=== PATIENT | female | born 1950 | race Hispanic/Latino ===

== ENCOUNTER 2017-05-14 06:40 | Emergency (ER) | payer MEDICARE ==
[~2017-05-14] VITALS: Ht 157.5 cm; Wt 92.5 kg
[~2017-05-14 06:40] MED LIST: ADVAIR 250-501 EACH INH; CEFUROXIME500 MG PO; CIPROFLOXACIN750 MG PO; ENALAPRIL MALE2.5 MG PO; GLIMEPIRIDE4 MG PO; LEVOTHYROXINE25 MCG PO; LEVOTHYROXINE50 MCG PO; LOVASTATIN40 MG PO; METFORMIN HCL850 MG PO; Q-TUSSIN DM SY120 ML PO
--- OUTSIDE RECORDS SUMMARY | 2017-05-14 06:43 | XMS REPORT ---
Author Author [facility] Address Unknown Phone Unavailable Care Team Providers Care Instrument Lens Grinder Name Role Phone FRANKY PETERSEN Unavailable Unavailable Problems This patient has no known problems. Allergies, Adverse Reactions, Alerts This patient has no known allergies or adverse reactions. Medications This patient has no known medications. Results Test Description Test Time Test Comments Text Results Atomic Results Result Comments CT ABDOMEN/PELVIS W [place] [address] Patient Name: JOANIE MARIEE MR #: [id number] : 1950 Age/Sex: 66/F Req #: [id number] [facility] Physician: FRANKY PETERSEN MD Ordered by: BERNIE HAGEN MD Report #: [id number] Location: [facility] Room/Bed: [place] [address] Procedure: [id number] CT/CT ABDOMEN/PELVIS W Exam Date: Exam Time: REPORT STATUS: Signed EXAM: CT ABDOMEN/PELVIS W DATE: 01/05/2017 6:01 PM INDICATION: Left lower quadrant pain COMPARISON: None TECHNIQUE: The abdomen and pelvis were scanned using a multidetector helical scanner. Coronal and sagittal reformations were obtained. Routine protocol performed. IV Contrast: 100 ml Isovue 370 FINDINGS: LOWER THORAX: Mild lingular opacity, likely atelectasis. LIVER/BILIARY: No masses. Mild biliary ductal dilation status post cholecystectomy. GALLBLADDER: Surgically absent SPLEEN: Unremarkable PANCREAS: Unremarkable ADRENALS: No nodules KIDNEYS: Symmetric perfusion. Multiple too small to characterize bilateral renal hypodensities. No hydronephrosis. GI TRACT: Mild thickening of several jejunal loops for example on image 37, 42 but without surrounding inflammatory changes. No evidence of bowel obstruction. Appendix is not visualized. VESSELS: Minimal atherosclerotic changes PERITONEUM/ RETROPERITONEUM: No free air or fluid LYMPH NODES: No lymphadenopathy REPRODUCTIVE ORGANS/BLADDER: Status post hysterectomy. SOFT TISSUES: Rectus muscle diastases. BONES: Scattered degenerative changes are seen about the spine.. IMPRESSION: Question mild jejunitis. Otherwise negative for acute abnormality. Signed by: Dr Chika Obregon MD on 01/05/2017 7:24 PM Dictated By: CHIKA OBREGON MD 23 Transcribed By: EVERETTE on 01/05/171923 COPY TO: BERNIE HAGEN MD
--- NOTE | 2017-05-14 07:46 | Diagnostic Imaging Report ---
PROCEDURE: A single AP view of the chest. COMPARISON: Chest 2 views 05/16/2016. INDICATIONS: COUGH, FEVER FINDINGS: Lines/tubes: None. Lungs: The lungs are well inflated and clear. There is no evidence of pneumonia or pulmonary edema. Pleura: There is no pleural effusion or pneumothorax. Heart and mediastinum: The heart and the mediastinum are unremarkable. Bones: No acute bony abnormality. IMPRESSION: No acute radiographic abnormality. Dictated by: Brandon Blanton M.D. on 05/14/2017 at 7:45 Electronically approved by: Brandon Blanton M.D. on 05/14/2017 at 7:45
[2017-05-14 07:48] LABS: BASOPHILS # (AUTO) 0.1 (0.0-0.1); BASOPHILS % 0.7 % (0.0-1.0); EOSINOPHILS # (AUTO) 0.4 (0.0-0.4); EOSINOPHILS % 6.3 % (0.0-6.0); HEMOGLOBIN 10.2 g/dL (12.0-16.0); LYMPHOCYTES # (AUTO) 1.5 (1.0-3.2); LYMPHOCYTES % 21.3 % (18.0-39.1); MEAN CORPUSCULAR HEMOGLOBIN 28.3 pg (28-32); MEAN CORPUSCULAR HGB CONC 30.9 g/dL (31-35); MEAN CORPUSCULAR VOLUME 91.7 fL (81-99); MONOCYTES # (AUTO) 0.4 (0.2-0.8); MONOCYTES % 5.1 % (4.4-11.3); NEUTROPHILS # (AUTO) 4.5 (2.1-6.9); NEUTROPHILS % 66.3 % (38.7-80.0); PLATELET COUNT 265 x10e3/uL (140-360); RED CELL DISTRIBUTION WIDTH 15.7 % (11.7-14.4)
[2017-05-14 08:06] LABS: ALANINE AMINOTRANSFERASE 16 IU/L (0-55); ALBUMIN 3.6 g/dL (3.5-5.0); ALBUMIN/GLOBULIN RATIO 0.9 (0.8-2.0); ALKALINE PHOSPHATASE 114 IU/L (40-150); ANION GAP 11.5 mmol/L (8-16); BLOOD UREA NITROGEN 11 mg/dL (7-26); BUN/CREATININE RATIO 16 (6-25); CALCIUM 8.5 mg/dL (8.4-10.2); CARBON DIOXIDE 27 mmol/L (22-29); CHLORIDE 104 mmol/L (98-107); EST GLOMERULAR FILTRATION RATE > 60 ML/MIN (60-); GLUCOSE 110 mg/dL (74-118); POTASSIUM 3.5 mmol/L (3.5-5.1); SODIUM 139 mmol/L (136-145)
== END 2017-05-14 09:00 | disposition home or self-care (01) ==
LOC: ER 06:40
DX: J00 Acute nasopharyngitis [common cold] (principal); R19.7 Diarrhea, unspecified; E11.9 Type 2 diabetes mellitus without complications; I10 Essential (primary) hypertension
CPT/HCPCS: 36415; 71045; 80053; 85025; 87040; 87400; 93005; 99284

== ENCOUNTER 2018-03-03 06:21 | Emergency (ER) | payer MEDICARE ==
[~2018-03-03] VITALS: Ht 157.5 cm; Wt 92.5 kg
[2018-03-03] MEDS ORDERED: ALBUTEROL/IPRATROPIUM 3 ML NEB NEB ONE ×2 (06:45→07:15)
[2018-03-03 07:08] LABS: BASOPHILS # (AUTO) 0.1 (0.0-0.1); BASOPHILS % 0.7 % (0.0-1.0); EOSINOPHILS # (AUTO) 0.6 (0.0-0.4); HEMATOCRIT 33.2 % (34.2-44.1); HEMOGLOBIN 10.1 g/dL (12.0-16.0); LYMPHOCYTES # (AUTO) 1.8 (1.0-3.2); LYMPHOCYTES % 26.5 % (18.0-39.1); MEAN CORPUSCULAR HEMOGLOBIN 29.4 pg (28-32); MEAN CORPUSCULAR HGB CONC 30.4 g/dL (31-35); MEAN CORPUSCULAR VOLUME 96.8 fL (81-99); MONOCYTES # (AUTO) 0.4 (0.2-0.8); MONOCYTES % 6.3 % (4.4-11.3); NEUTROPHILS % 58.1 % (38.7-80.0); PLATELET COUNT 258 x10e3/uL (140-360); RED BLOOD COUNT 3.43 x10e6/uL (3.6-5.1); RED CELL DISTRIBUTION WIDTH 18.6 % (11.7-14.4)
[2018-03-03] MEDS ORDERED: DEXAMETHASONE SOD PHOS 10 MG/1 ML VIAL IV ONE (07:15)
[2018-03-03 07:20] LABS: INR 0.87; PARTIAL THROMBOPLASTIN TIME 26.9 seconds (23.8-35.5); PROTHROMBIN TIME 12.7 seconds (11.9-14.5)
[2018-03-03 07:25] LABS: ALANINE AMINOTRANSFERASE 35 IU/L (0-55); ALBUMIN 3.7 g/dL (3.5-5.0); ALBUMIN/GLOBULIN RATIO 0.8 (0.8-2.0); ALKALINE PHOSPHATASE 222 IU/L (40-150); ANION GAP 17.1 mmol/L (8-16); BLOOD UREA NITROGEN 11 mg/dL (7-26); BUN/CREATININE RATIO 14 (6-25); CALCIUM 9.5 mg/dL (8.4-10.2); CARBON DIOXIDE 24 mmol/L (22-29); CHLORIDE 101 mmol/L (98-107); CREATINE KINASE 85 IU/L (29-168); CREATININE, SERUM 0.79 mg/dL (0.57-1.11); EST GLOMERULAR FILTRATION RATE > 60 ML/MIN (60-); GLUCOSE 144 mg/dL (74-118); POTASSIUM 4.1 mmol/L (3.5-5.1); SODIUM 138 mmol/L (136-145)
[2018-03-03] MEDS ORDERED: KETOROLAC TROMETHAMINE 30 MG/ML VIAL IV STA (08:01)
[2018-03-03] MEDS ORDERED: SODIUM CHLORIDE 0.9% 1000ML 1,000 ML IV ONE (08:15)
--- NOTE | 2018-03-03 08:28 | Diagnostic Imaging Report ---
PROCEDURE: X-RAY CHEST, TWO VIEWS COMPARISON: Patients [facility], DX, CHEST SINGLE (PORTABLE), 05/14/2017, 7:34. INDICATIONS: COUGH, CONGESTION, SHORTNESS OF BREATH, CHEST PAINS X3 DAYS FINDINGS: LUNGS: No consolidations or edema. Linear scarring in the left lung base. PLEURA: No effusions or pneumothorax. HEART & MEDIASTINUM: The heart is within normal size-limits. Focal eventration of the right hemidiaphragm. BONES & SOFT TISSUES: No acute findings. CONCLUSION: No acute thoracic abnormality. Jd Yanes D.O. Dictated by: Jd Yanes D.O. on 03/03/2018 at 8:38 Electronically approved by: Jd Yanes D.O. on 03/03/2018 at 8:38
[2018-03-03] MEDS ORDERED: VENTOLIN HFA18 GM INH (09:11)
[2018-03-03] MEDS ORDERED: AZITHROMYCIN250 MG PO (09:11)
[2018-03-03] MEDS ORDERED: MUCINEX COLD-F177 ML PO (09:11)
[2018-03-03] MEDS ORDERED: PREDNISONE20 MG PO (09:11)
[2018-03-03] MEDS ORDERED: ATROVENT HFA12.9 GM INH (09:11)
[2018-03-03 09:29] VITALS: BP 130/62
== END 2018-03-03 09:33 | disposition home or self-care (01) ==
LOC: ER 06:21
DX: R06.00 Dyspnea, unspecified (principal); J45.31 Mild persistent asthma with (acute) exacerbation; J42 Unspecified chronic bronchitis
CPT/HCPCS: 36415; 71046; 80053; 82550; 82553; 82948; 83880; 84484; 85025; 85610; 85730; 87400; 93005; 99284; J1100; J1885; J7030

== ENCOUNTER 2018-11-29 19:37 | Emergency (ER) | payer MEDICARE ==
[~2018-11-29] VITALS: Ht 157.5 cm; Wt 92.5 kg
[~2018-11-29 19:37] MED LIST changes: +ATROVENT HFA12.9 GM INH; +AZITHROMYCIN250 MG PO; +MUCINEX COLD-F177 ML PO; +PREDNISONE20 MG PO; +VENTOLIN HFA18 GM INH
[2018-11-29] MEDS ORDERED: ALBUTEROL SULF 0.083% NEB SOLN 3 ML NEB NEB NR (20:00)
[2018-11-29] MEDS ORDERED: METHYLPREDNISOLONE SOD SUCC 125 MG/2ML VIAL IV NR (20:00)
[2018-11-29] MEDS ORDERED: IPRATROPIUM BROMIDE 0.02% 2.5 ML NEB NEB NR (20:00)
[2018-11-29] MEDS ORDERED: ALBUTEROL/IPRATROPIUM 3 ML NEB ONE (20:03)
[2018-11-29 20:29] LABS: BASOPHILS % 0.6 % (0.0-1.0); EOSINOPHILS # (AUTO) 0.5 (0.0-0.4); EOSINOPHILS % 6.7 % (0.0-6.0); HEMATOCRIT 32.4 % (34.2-44.1); HEMOGLOBIN 10.7 g/dL (12.0-16.0); LYMPHOCYTES # (AUTO) 2.4 (1.0-3.2); LYMPHOCYTES % 34.5 % (18.0-39.1); MEAN CORPUSCULAR VOLUME 112.1 fL (81-99); MONOCYTES # (AUTO) 0.3 (0.2-0.8); NEUTROPHILS # (AUTO) 3.6 (2.1-6.9); NEUTROPHILS % 52.9 % (38.7-80.0); PLATELET COUNT 224 x10e3/uL (140-360); RED BLOOD COUNT 2.89 x10e6/uL (3.6-5.1); RED CELL DISTRIBUTION WIDTH 16.7 % (11.7-14.4)
[2018-11-29 20:44] LABS: ALANINE AMINOTRANSFERASE 13 IU/L (0-55); ALBUMIN 3.8 g/dL (3.5-5.0); ALKALINE PHOSPHATASE 142 IU/L (40-150); ANION GAP 15.2 mmol/L (8-16); BLOOD UREA NITROGEN 16 mg/dL (7-26); BUN/CREATININE RATIO 21 (6-25); CALCIUM 9.8 mg/dL (8.4-10.2); CARBON DIOXIDE 27 mmol/L (22-29); CHLORIDE 102 mmol/L (98-107); CREATINE KINASE 56 IU/L (29-168); CREATININE, SERUM 0.78 mg/dL (0.57-1.11); EST GLOMERULAR FILTRATION RATE > 60 ML/MIN (60-); GLUCOSE 71 mg/dL (74-118); POTASSIUM 4.2 mmol/L (3.5-5.1); SODIUM 140 mmol/L (136-145)
[2018-11-29 21:15] LABS: B-TYPE NATRIURETIC PEPTIDE2 23.1 pg/mL (0-100)
--- NOTE | 2018-11-29 21:24 | Diagnostic Imaging Report ---
Portable chest x-ray INDICATION: Cough COMPARISON: Chest x-ray 03/03/2018 FINDINGS: Frontal view of the chest obtained at 2031 hours. The cardiac silhouette is normal. The pulmonary vascular markings are normal. The lungs demonstrate no mass or infiltrate. No interstitial edema. The costophrenic angles are sharp. There is no pneumothorax. Eventration of the right diaphragm is stable. The osseous structures are intact and normal in morphology. IMPRESSION: No acute cardiopulmonary process. Signed by: Dr. Tho Mackenzie MD on 11/29/2018 9:20 PM
[2018-11-29 22:23] VITALS: BP 124/61
== END 2018-11-29 22:37 | disposition home or self-care (01) ==
LOC: FSED 19:37 → ER 22:37
DX: R05 Cough (principal); J20.9 Acute bronchitis, unspecified
CPT/HCPCS: 36415; 71045; 80053; 82550; 82553; 83605; 83880; 84484; 85025; 94640; 96374; 99284; J2930

== ENCOUNTER 2020-01-19 13:31 | Emergency (ER) | payer MEDICARE ==
[~2020-01-19] VITALS: Ht 157.5 cm; Wt 92.5 kg
[~2020-01-19 13:31] MED LIST changes: +TYLENOL WITH C1 EACH PO
[2020-01-19] MEDS ORDERED: KETOROLAC TROMETHAMINE 60 MG/2 ML VIAL IM ONE (16:00)
[2020-01-19] MEDS ORDERED: CYCLOBENZAPRINE HCL 10 MG TAB PO ONE (16:00)
[2020-01-19] MEDS ORDERED: CYCLOBENZAPRINE HCL 10 MG TAB ONE (16:27)
[2020-01-19] MEDS ORDERED: KETOROLAC TROMETHAMINE 60 MG/2 ML VIAL ONE (16:27)
[2020-01-19] MEDS ORDERED: MELOXICAM15 MG PO (16:59)
[2020-01-19] MEDS ORDERED: PREDNISONE20 MG PO (16:59)
== END 2020-01-19 17:04 | disposition home or self-care (01) ==
LOC: FSED 13:52
DX: M25.562 Pain in left knee (principal); M17.12 Unilateral primary osteoarthritis, left knee; M76.9 Unspecified enthesopathy, lower limb, excluding foot; I10 Essential (primary) hypertension; E11.9 Type 2 diabetes mellitus without complications; J45.909 Unspecified asthma, uncomplicated
CPT/HCPCS: 73562; 93971 ×2; 99283; J1885

== ENCOUNTER 2020-03-05 05:10 | Emergency (ER) | payer MEDICARE ==
[~2020-03-05] VITALS: Ht 157.5 cm; Wt 92.5 kg
[~2020-03-05 05:10] MED LIST changes: +MELOXICAM15 MG PO
[2020-03-05] MEDS ORDERED: KETOROLAC TROMETHAMINE 30 MG/ML VIAL IM STA (05:33)
[2020-03-05] MEDS ORDERED: HYDROCODONE/APAP 7.5MG-325MG 1 EA TAB PO PRN (05:45)
== END 2020-03-05 06:05 | disposition home or self-care (01) ==
LOC: ER 05:22
DX: M17.12 Unilateral primary osteoarthritis, left knee (principal); M25.562 Pain in left knee; I10 Essential (primary) hypertension; E11.9 Type 2 diabetes mellitus without complications
CPT/HCPCS: 99283; J1885

== ENCOUNTER 2020-06-28 12:18 | Emergency (ER) | payer MEDICARE ==
[~2020-06-28] VITALS: Ht 157.5 cm; Wt 92.5 kg
[2020-06-28] MEDS ORDERED: SODIUM CHLORIDE 0.9% 1000ML 1,000 ML IV STA (12:23)
[2020-06-28] MEDS ORDERED: ONDANSETRON HCL INJ 2MG/ML 2ML 2 MG/ML VIAL IV PRN (12:30)
[2020-06-28 13:17] LABS: BASOPHILS % 0.3 % (0.0-1.0); EOSINOPHILS % 0.1 % (0.0-6.0); HEMATOCRIT 39.2 % (34.2-44.1); HEMOGLOBIN 11.7 g/dL (12.0-16.0); LYMPHOCYTES # (AUTO) 1.4 (1.0-3.2); LYMPHOCYTES % 11.9 % (18.0-39.1); MEAN CORPUSCULAR HEMOGLOBIN 22.7 pg (28-32); MEAN CORPUSCULAR HGB CONC 29.8 g/dL (31-35); MEAN CORPUSCULAR VOLUME 76.1 fL (81-99); MONOCYTES % 8.3 % (4.4-11.3); NEUTROPHILS # (AUTO) 8.9 (2.1-6.9); NEUTROPHILS % 78.3 % (38.7-80.0); PLATELET COUNT 370 x10e3/uL (140-360); RED BLOOD COUNT 5.15 x10e6/uL (3.6-5.1); RED CELL DISTRIBUTION WIDTH 17.2 % (11.7-14.4)
[2020-06-28 13:37] LABS: ALBUMIN 2.9 g/dL (3.5-5.0); ALBUMIN/GLOBULIN RATIO 0.7 (0.8-2.0); ANION GAP 17.6 mmol/L (8-16); CREATININE, SERUM 1.07 mg/dL (0.57-1.11); POTASSIUM 3.6 mmol/L (3.5-5.1)
[2020-06-28 14:30] LABS: CLARITY,URINE SL CLOUDY (CLEAR); COLOR,URINE YELLOW (YELLOW)
[2020-06-28 14:31] LABS: KETONES,URINE 2+ (NEGATIVE); LEUKOCYTE ESTERASE ,URINE 1+ (NEGATIVE); NITRITE,URINE NEGATIVE (NEGATIVE); PROTEIN,URINE DIPSTICK 2+ (NEGATIVE); URINE UROBILINOGEN 0.2 mg/dL (0.2 - 1)
[2020-06-28 14:35] LABS: BACTERIA,URINE FEW /HPF; EPITHELIAL CELLS,URINE MODERATE /LPF; RBC,URINE 0-5 /HPF (0-5)
[2020-06-28] MEDS ORDERED: MECLIZINE HCL 12.5 MG TAB PO STA (14:42)
[2020-06-28] MEDS ORDERED: PROMETHAZINE 12.5MG/ NACL 0.9% 12.5 MG/50 ML BAG IV PRN (15:15)
[2020-06-28] MEDS ORDERED: ONDANSETRON HCL INJ 2MG/ML 2ML 2 MG/ML VIAL IV STA (15:21)
[2020-06-28] MEDS ORDERED: SODIUM CHLORIDE 0.9% 1000ML 1,000 ML IV ONE (15:30)
[2020-06-28] MEDS ORDERED: SODIUM CHLORIDE 0.9% 1000ML 1,000 ML IV SCH (15:45)
[2020-06-28] MEDS ORDERED: ADVAIR 250-501 EACH INH (17:50)
[2020-06-28] MEDS ORDERED: GABAPENTIN600 MG PO (17:52)
[2020-06-28] MEDS ORDERED: IBUPROFEN400 MG PO (17:53)
[2020-06-29 07:03] LABS: BASOPHILS % 0.4 % (0.0-1.0); EOSINOPHILS # (AUTO) 0.1 (0.0-0.4); HEMATOCRIT 35.1 % (34.2-44.1); HEMOGLOBIN 10.4 g/dL (12.0-16.0); LYMPHOCYTES # (AUTO) 1.8 (1.0-3.2); LYMPHOCYTES % 25.8 % (18.0-39.1); MEAN CORPUSCULAR HEMOGLOBIN 22.6 pg (28-32); MEAN CORPUSCULAR HGB CONC 29.6 g/dL (31-35); MEAN CORPUSCULAR VOLUME 76.1 fL (81-99); MONOCYTES # (AUTO) 0.7 (0.2-0.8); MONOCYTES % 9.4 % (4.4-11.3); NEUTROPHILS # (AUTO) 4.4 (2.1-6.9); NEUTROPHILS % 62.4 % (38.7-80.0); RED BLOOD COUNT 4.61 x10e6/uL (3.6-5.1); RED CELL DISTRIBUTION WIDTH 17.3 % (11.7-14.4)
[2020-06-29 07:30] LABS: ANION GAP 13.1 mmol/L (8-16); BLOOD UREA NITROGEN 13 mg/dL (7-26); BUN/CREATININE RATIO 20 (6-25); CALCIUM 7.4 mg/dL (8.4-10.2); CARBON DIOXIDE 22 mmol/L (22-29); CHLORIDE 107 mmol/L (98-107); CREATININE, SERUM 0.65 mg/dL (0.57-1.11); EST GLOMERULAR FILTRATION RATE > 60 ML/MIN (60-); GLUCOSE 185 mg/dL (74-118); POTASSIUM 3.1 mmol/L (3.5-5.1); SODIUM 139 mmol/L (136-145)
[2020-06-29 08:28] LABS: PLATELET COUNT 234 x10e3/uL (140-360)
[2020-06-29] MEDS ORDERED: PREDNISONE20 MG PO (14:22)
[2020-06-29] MEDS ORDERED: POTASSIUM CHLORIDE 20 MEQ TAB CR PO STA (14:25)
[2020-06-29] MEDS ORDERED: ZOFRAN4 MG PO (14:27)
== END 2020-06-29 15:14 | disposition home or self-care (01) ==
LOC: ER 12:23 → ERHOLD 15:40 → UNDOADMOB 15:40
DX: U07.1 COVID-19 (principal); E11.65 Type 2 diabetes mellitus with hyperglycemia; R11.2 Nausea with vomiting, unspecified; R53.1 Weakness; I10 Essential (primary) hypertension; J45.909 Unspecified asthma, uncomplicated; M25.562 Pain in left knee; G89.29 Other chronic pain
CPT/HCPCS: 36415; 70450; 71046; 80048; 80053; 81001; 83690; 85025; 99284; J2405; J7030; J8597; U0002

== ENCOUNTER 2021-03-21 05:53 | Emergency (ER) | payer MEDICARE ==
[~2021-03-21] VITALS: Ht 157.5 cm; Wt 92.5 kg
[~2021-03-21 05:53] MED LIST changes: +GABAPENTIN600 MG PO; +IBUPROFEN400 MG PO; +ZOFRAN4 MG PO
[2021-03-21] MEDS ORDERED: SODIUM CHLORIDE 0.9% 1000ML 1,000 ML IV SCH (06:15)
[2021-03-21] MEDS ORDERED: ACETAMINOPHEN 325 MG TAB PO NR (06:15)
[2021-03-21 06:19] LABS: BASOPHILS % 0.1 % (0.0-1.0); EOSINOPHILS # (AUTO) 0.3 (0.0-0.4); EOSINOPHILS % 2.6 % (0.0-6.0); HEMOGLOBIN 10.6 g/dL (12.0-16.0); LYMPHOCYTES % 8.1 % (18.0-39.1); MEAN CORPUSCULAR HEMOGLOBIN 24.3 pg (28-32); MEAN CORPUSCULAR HGB CONC 28.6 g/dL (31-35); MEAN CORPUSCULAR VOLUME 84.7 fL (81-99); MONOCYTES # (AUTO) 0.4 (0.2-0.8); MONOCYTES % 3.2 % (4.4-11.3); NEUTROPHILS # (AUTO) 10.4 (2.1-6.9); NEUTROPHILS % 85.7 % (38.7-80.0); PLATELET COUNT 251 x10e3/uL (140-360); RED BLOOD COUNT 4.37 x10e6/uL (3.6-5.1); RED CELL DISTRIBUTION WIDTH 20.6 % (11.7-14.4)
[2021-03-21] MEDS ORDERED: ONDANSETRON HCL INJ 2MG/ML 2ML 2 MG/ML VIAL IV STA (06:29)
[2021-03-21 06:35] LABS: ALBUMIN 3.4 g/dL (3.5-5.0); ALBUMIN/GLOBULIN RATIO 0.8 (0.8-2.0); ANION GAP 15.4 mmol/L (8-16); CALCIUM 8.5 mg/dL (8.4-10.2); CREATININE, SERUM 0.77 mg/dL (0.57-1.11); POTASSIUM 3.4 mmol/L (3.5-5.1)
[2021-03-21] MEDS ORDERED: KETOROLAC TROMETHAMINE 30 MG/ML VIAL IV NR (06:48)
[2021-03-21 07:10] LABS: CREATINE KINASE 30 IU/L (29-168)
== END 2021-03-21 07:55 | disposition home or self-care (01) ==
LOC: ER 06:08
DX: U07.1 COVID-19 (principal); I10 Essential (primary) hypertension; E11.9 Type 2 diabetes mellitus without complications; J45.909 Unspecified asthma, uncomplicated; Z79.84 Long term (current) use of oral hypoglycemic drugs; Z79.899 Other long term (current) drug therapy
CPT/HCPCS: 36415; 71045; 80053; 82550; 82553; 84484; 85025; 99284; J2405; J7030; U0002

== ENCOUNTER 2021-04-21 15:44 | Inpatient (IN) | payer MEDICARE ==
[~2021-04-21] VITALS: Ht 157.5 cm; Wt 92.5 kg
[2021-04-21] MEDS ORDERED: SODIUM CHLORIDE 0.9% 1000ML 500 ML IV STA (15:56)
[2021-04-21 16:08] LABS: BASOPHILS # (AUTO) 0.1 (0.0-0.1); BASOPHILS % 0.4 % (0.0-1.0); EOSINOPHILS # (AUTO) 0.2 (0.0-0.4); EOSINOPHILS % 1.7 % (0.0-6.0); HEMATOCRIT 33.3 % (34.2-44.1); HEMOGLOBIN 9.7 g/dL (12.0-16.0); LYMPHOCYTES # (AUTO) 1.5 (1.0-3.2); LYMPHOCYTES % 13.3 % (18.0-39.1); MEAN CORPUSCULAR HEMOGLOBIN 25.5 pg (28-32); MEAN CORPUSCULAR HGB CONC 29.1 g/dL (31-35); MEAN CORPUSCULAR VOLUME 87.4 fL (81-99); MONOCYTES # (AUTO) 0.5 (0.2-0.8); NEUTROPHILS # (AUTO) 9.2 (2.1-6.9); NEUTROPHILS % 80.2 % (38.7-80.0); PLATELET COUNT 285 x10e3/uL (140-360); RED BLOOD COUNT 3.81 x10e6/uL (3.6-5.1); RED CELL DISTRIBUTION WIDTH 19.9 % (11.7-14.4)
[2021-04-21 16:20] LABS: INR 1.01
[2021-04-21 16:21] LABS: PARTIAL THROMBOPLASTIN TIME 28.3 seconds (23.8-35.5)
[2021-04-21 16:22] LABS: CLARITY,URINE CLEAR (CLEAR); COLOR,URINE YELLOW (YELLOW); KETONES,URINE NEGATIVE (NEGATIVE); LEUKOCYTE ESTERASE ,URINE NEGATIVE (NEGATIVE); NITRITE,URINE NEGATIVE (NEGATIVE); PROTEIN,URINE DIPSTICK NEGATIVE (NEGATIVE); URINE UROBILINOGEN 0.2 mg/dL (0.2 - 1)
[2021-04-21 16:24] LABS: ALBUMIN/GLOBULIN RATIO 0.6 (0.8-2.0); ANION GAP 15.1 mmol/L (8-16); CALCIUM 8.7 mg/dL (8.4-10.2); CREATININE, SERUM 0.98 mg/dL (0.57-1.11); POTASSIUM 4.1 mmol/L (3.5-5.1)
[2021-04-21 16:30] LABS: EPITHELIAL CELLS,URINE RARE /LPF; WBC,URINE (MAN) 0-5 /HPF (0-5)
[2021-04-21 16:30] LABS: CREATINE KINASE MB 0.5 ng/mL (0-5.0)
[2021-04-21] MEDS ORDERED: INSULIN REGULAR, HUMAN 100 UNIT/1 ML SQ ONE (16:30)
[2021-04-21] MEDS: CEFTRIAXONE 1 GM in SODIUM CHLORIDE 0.9% 50ML 50 ML IV SCH (16:44)
[2021-04-21] MEDS ORDERED: CEFTRIAXONE 1 GM in SODIUM CHLORIDE 0.9% 50ML 50 ML IV SCH (16:45)
[2021-04-21] MEDS ORDERED: FLUCONAZOLE 100 MG TAB PO ONE (18:00)
[2021-04-21] MEDS ORDERED: SODIUM CHLORIDE 0.9% 50ML 50 ML ONE (18:16)
[2021-04-21] MEDS ORDERED: IOPAMIDOL 370 MG/ML 200 ML INFUS..BTL INJ ONE (18:16)
[2021-04-21] MEDS: SODIUM CHLORIDE 0.9% 1000ML 1,000 ML IV SCH (18:49)
[2021-04-21] MEDS ORDERED: DEXTROSE 50% SYRINGE 50 ML IV PRN (19:00)
[2021-04-21 20:15] VITALS: BP 118/68
[2021-04-21 20:44] VITALS: BP 118/68
[2021-04-21] MEDS: INSULIN REGULAR, HUMAN 100 UNIT/1 ML SQ SCH (20:59)
[2021-04-21 21:00] VITALS: BP 118/68
[2021-04-21 21:01] VITALS: BP 118/68
[2021-04-22] VITALS (11 sets, daily range): BP systolic 110–130; BP diastolic 47–59
[2021-04-22] MEDS: SODIUM CHLORIDE 0.9% 1000ML 1,000 ML IV SCH ×4 (02:08→20:47)
[2021-04-22] MEDS ORDERED: ALTOPREV40 MG PO (03:15)
[2021-04-22 06:06] LABS: BASOPHILS # (AUTO) 0.1 (0.0-0.1); BASOPHILS % 0.6 % (0.0-1.0); EOSINOPHILS # (AUTO) 0.3 (0.0-0.4); EOSINOPHILS % 3.6 % (0.0-6.0); HEMOGLOBIN 9.3 g/dL (12.0-16.0); LYMPHOCYTES # (AUTO) 1.9 (1.0-3.2); LYMPHOCYTES % 21.5 % (18.0-39.1); MEAN CORPUSCULAR HEMOGLOBIN 25.5 pg (28-32); MEAN CORPUSCULAR VOLUME 85.2 fL (81-99); MONOCYTES # (AUTO) 0.4 (0.2-0.8); MONOCYTES % 4.8 % (4.4-11.3); PLATELET COUNT 271 x10e3/uL (140-360); RED BLOOD COUNT 3.64 x10e6/uL (3.6-5.1); RED CELL DISTRIBUTION WIDTH 20.1 % (11.7-14.4)
[2021-04-22 06:33] LABS: ALBUMIN 2.6 g/dL (3.5-5.0); ALBUMIN/GLOBULIN RATIO 0.6 (0.8-2.0); CALCIUM 8.4 mg/dL (8.4-10.2); CREATININE, SERUM 0.71 mg/dL (0.57-1.11)
[2021-04-22] MEDS: INSULIN REGULAR, HUMAN 100 UNIT/1 ML SQ SCH ×4 (08:06→20:46)
[2021-04-22] MEDS ORDERED: LEVOTHYROXINE SODIUM 50 MCG TAB PO SCH (09:00)
[2021-04-22] MEDS: METFORMIN HCL 850 MG TAB PO SCH ×3 (09:13→16:40)
[2021-04-22] MEDS: FLUCONAZOLE 100 MG TAB PO SCH (09:13)
[2021-04-22] MEDS: CEFTRIAXONE 1 GM in SODIUM CHLORIDE 0.9% 50ML 50 ML IV SCH (16:40)
[2021-04-23] VITALS (14 sets, daily range): BP systolic 116–140; BP diastolic 50–70
[2021-04-23] MEDS: SODIUM CHLORIDE 0.9% 1000ML 1,000 ML IV SCH ×3 (03:27→23:24)
[2021-04-23] MEDS: IBUPROFEN 400 MG TAB PO PRN ×3 (04:04→23:25)
[2021-04-23] MEDS: LEVOTHYROXINE SODIUM 50 MCG TAB PO SCH (05:10)
[2021-04-23] MEDS: FLUCONAZOLE 100 MG TAB PO SCH (08:28)
[2021-04-23] MEDS: METFORMIN HCL 850 MG TAB PO SCH ×3 (08:28→16:12)
[2021-04-23] MEDS: INSULIN REGULAR, HUMAN 100 UNIT/1 ML SQ SCH ×4 (08:29→20:29)
[2021-04-23] MEDS: CEFTRIAXONE 1 GM in SODIUM CHLORIDE 0.9% 50ML 50 ML IV SCH (16:12)
[2021-04-24] VITALS (8 sets, daily range): BP systolic 132–155; BP diastolic 55–72
[2021-04-24] MEDS: LEVOTHYROXINE SODIUM 50 MCG TAB PO SCH (05:16)
[2021-04-24 06:16] LABS: BASOPHILS # (AUTO) 0.1 (0.0-0.1); BASOPHILS % 0.7 % (0.0-1.0); EOSINOPHILS # (AUTO) 0.3 (0.0-0.4); EOSINOPHILS % 3.6 % (0.0-6.0); HEMATOCRIT 31.3 % (34.2-44.1); LYMPHOCYTES # (AUTO) 1.5 (1.0-3.2); LYMPHOCYTES % 16.1 % (18.0-39.1); MEAN CORPUSCULAR HEMOGLOBIN 25.4 pg (28-32); MEAN CORPUSCULAR HGB CONC 28.8 g/dL (31-35); MEAN CORPUSCULAR VOLUME 88.2 fL (81-99); MONOCYTES # (AUTO) 0.4 (0.2-0.8); MONOCYTES % 4.6 % (4.4-11.3); NEUTROPHILS # (AUTO) 6.9 (2.1-6.9); NEUTROPHILS % 74.6 % (38.7-80.0); PLATELET COUNT 285 x10e3/uL (140-360); RED BLOOD COUNT 3.55 x10e6/uL (3.6-5.1); RED CELL DISTRIBUTION WIDTH 20.8 % (11.7-14.4)
[2021-04-24 06:37] LABS: ALBUMIN 2.5 g/dL (3.5-5.0); ALBUMIN/GLOBULIN RATIO 0.6 (0.8-2.0); ANION GAP 12.9 mmol/L (8-16); CALCIUM 8.3 mg/dL (8.4-10.2); CREATININE, SERUM 0.66 mg/dL (0.57-1.11); POTASSIUM 3.9 mmol/L (3.5-5.1)
[2021-04-24] MEDS: INSULIN REGULAR, HUMAN 100 UNIT/1 ML SQ SCH ×4 (07:30→17:20)
[2021-04-24] MEDS: FLUCONAZOLE 100 MG TAB PO SCH (08:56)
[2021-04-24] MEDS: METFORMIN HCL 850 MG TAB PO SCH ×3 (08:56→17:11)
[2021-04-24] MEDS ORDERED: MICONAZOLE NITRATE 45 GM CR VG SCH ×2 (09:00→21:00)
[2021-04-24] MEDS: SODIUM CHLORIDE 0.9% 1000ML 1,000 ML IV SCH ×2 (10:00→17:00)
[2021-04-24 11:46] LABS: EOSINOPHILS % (MANUAL) 2 % (0-7); LYMPHOCYTES % (MANUAL) 8 % (19-48); MONOCYTES % (MANUAL) 3 % (3.4-9.0); NEUTROPHILS % (MANUAL) 87 % (40-74); PLATELET ESTIMATE ADEQUATE; PLATELET MORPHOLOGY COMMENT FEW GIANT; RBC MORPHOLOGY COMMENT NORMAL
[2021-04-24] MEDS: CEFTRIAXONE 1 GM in SODIUM CHLORIDE 0.9% 50ML 50 ML IV SCH (17:11)
[2021-04-24] MEDS: IBUPROFEN 400 MG TAB PO PRN (17:50)
[2021-04-25] MEDS: SODIUM CHLORIDE 0.9% 1000ML 1,000 ML IV SCH (01:12)
[2021-04-25 01:34] VITALS: BP 116/61
[2021-04-25 05:07] VITALS: BP 113/64
[2021-04-25] MEDS: LEVOTHYROXINE SODIUM 50 MCG TAB PO SCH (06:19)
[2021-04-25 08:00] VITALS: BP 129/75
[2021-04-25 08:13] VITALS: BP 129/75
[2021-04-25] MEDS ORDERED: DIFLUCAN100 MG PO (09:20)
== END 2021-04-25 10:15 | disposition home or self-care (01) | DRG 759 ==
LOC: ER 15:51 → ERHOLD 17:58 → MED/SURG3 20:46
PROVIDERS: ADMIT Internal Medicine; ATTEND Internal Medicine
DX: B37.3 Candidiasis of vulva and vagina (principal); E11.65 Type 2 diabetes mellitus with hyperglycemia; I10 Essential (primary) hypertension; E66.9 Obesity, unspecified; Z68.37 Body mass index [BMI] 37.0-37.9, adult; D64.9 Anemia, unspecified; E03.9 Hypothyroidism, unspecified; Z20.822 Contact with and (suspected) exposure to COVID-19; Z79.84 Long term (current) use of oral hypoglycemic drugs; U09.9 Post COVID-19 condition, unspecified
CPT/HCPCS: 36415; 51700; 70450; 71045; 71260; 80053; 81001; 82550; 82553; 82948; 83605; 83880; 84484; 85025; 85610; 85730; 87040; 93005; 94799; 96372; 99284; J0696; J1817; J7030; Q9967; U0002